=== PATIENT | male | born 1970 | race Two or more races ===

== ENCOUNTER 2021-12-19 23:55 | Emergency (ER) | payer MEDICAID ==
[~2021-12-19] VITALS: Ht 165.1 cm; Wt 68.2 kg
[2021-12-20 00:09] VITALS: BP 128/108
[2021-12-20] MEDS ORDERED: LORazepam 1 MG tablet PO ONE (00:55)
[2021-12-20] MEDS ORDERED: LORA-269 PO (02:11)
== END 2021-12-20 02:15 | disposition home or self-care (01) ==
LOC: ER 23:56
DX: F41.9 Anxiety disorder, unspecified (principal); I10 Essential (primary) hypertension; E11.9 Type 2 diabetes mellitus without complications; Z87.19 Personal history of other diseases of the digestive system; Z90.49 Acquired absence of other specified parts of digestive tract; Z79.899 Other long term (current) drug therapy
CPT/HCPCS: 99283